=== PATIENT | female | born 2000 | race Caucasian/White ===

== ENCOUNTER 2023-08-22 12:37 | Emergency (ER) | payer MEDICAID ==
[~2023-08-22] VITALS: Ht 154.9 cm; Wt 46.5 kg
[2023-08-22 12:40] VITALS: BP 123/65; PULSE 91; TEMP 98.5; O2SAT 100
[2023-08-22 12:59] VITALS: RESP 16
== END 2023-08-22 14:01 | disposition home or self-care (01) ==
LOC: ER 12:38
DX: S06.0X0A Concussion without loss of consciousness, initial encounter (principal); W19.XXXA Unspecified fall, initial encounter; Y93.89 Activity, other specified; Y92.89 Other specified places as the place of occurrence of the external cause; Y99.8 Other external cause status
CPT/HCPCS: 70450; 99284